=== PATIENT | male | born 1935 | race Caucasian/White ===

== ENCOUNTER → 2017-06-19 | Outpatient (CLI) | payer MEDICARE, BC, OTHER ==
[~2017-06-19] MED LIST: CARDURA4 MG PO; CENTRUM SILVER1 CTB PO; CIALIS2.5 MG PO; DIPHEN/ATROP; GLUCOPHAGE500 MG/TAB PO; LIPITOR 10MG10 MG; MILLIPRED5 MG; NORCO 325 MG-51 TAB PO; ZOFRAN 4MG T4 MG/TAB PO; ZYRTEC5 MG PO
[2017-06-19 17:15] LABS: BASO # 0.1 (0.0-0.2); BASO % 0.6 % (0.0-2.0); EOS # 0.3 (0.0-0.7); EOS % 3.9 % (0-4.0); GRAN % 72.4 % (42.2-75.2); HEMATOCRIT 38.2 % (42.0-52.0); HEMOGLOBIN 12.1 g/dl (13.5-18.0); LYMPH # 1.2 (1.2-3.4); MEAN CELL VOLUME 92 fl (80.0-100.0); MEAN CORPUSCULAR HEMOGLOBIN 29 pg (27.0-31.0); MEAN CORPUSCULAR HGB CONC 32 g/dl (33.0-37.0); MEAN PLATELET VOLUME 11.7 fl (7.4-10.4); MONO # 0.7 (0.1-0.6); MONO % 8.6 % (1.7-9.3); PLATELET COUNT 128 K/mm3 (130-400); RED BLOOD COUNT 4.17 M/mm3 (4.20-5.60); REDCELL DISTRIBUTION WIDTH-CV 14.2 % (11.5-14.5); WHITE BLOOD COUNT 8.3 K/mm3 (4.8-10.8)
[2017-06-19 17:22] LABS: INR 1.2 (0.8-3.0); PROTHROMBIN TIME 13.2 SECONDS (9.7-12.8)
[2017-06-19 17:26] LABS: CREATININE, serum 1.53 mg/dL (0.66-1.25); POTASSIUM 5.1 mmol/L (3.4-5.0)
== END ==
LOC: COL.RAD 16:26
PROVIDERS: Dentist Oral and Maxillofacial Surgery
DX: M26.602 Left temporomandibular joint disorder, unspecified (principal); R22.0 Localized swelling, mass and lump, head; L03.221 Cellulitis of neck
CPT/HCPCS: Q9967

== ENCOUNTER → 2018-06-27 | Outpatient (CLI) | payer MEDICARE, BC | LOC: COL.RAD 08:46 | DX: K22.4 Dyskinesia of esophagus (principal) ==

== ENCOUNTER 2020-11-04 11:30 | Outpatient (CLI) | payer MEDICARE, BC ==
[~2020-11-04] VITALS: Ht 175.3 cm; Wt 97.1 kg
[2020-11-04 11:28] VITALS: BP 149/66; PULSE 58; TEMP 98.1
[~2020-11-04 11:30] MED LIST changes: -LIPITOR 10MG10 MG; +LIPITOR 10MG10 MG PO
[2020-11-04] MEDS ORDERED: CLARITIN 1010 MG/TAB PO (12:37)
[2020-11-04] MEDS ORDERED: PROTONIX 40MG T40 MG PO (12:37)
[2020-11-04] MEDS ORDERED: ALPHA LIPOIC A200 M2 PO (12:38)
[2020-11-04] MEDS ORDERED: XARELTO20 MG PO (12:38)
[2020-11-04] MEDS ORDERED: TYLENOL 500MG500 MG PO (12:39)
[2020-11-04] MEDS ORDERED: FLONASEALLERGY NS (12:40)
[2020-11-04] MEDS ORDERED: TUMS500 MG PO (12:41)
[2020-11-04] MEDS ORDERED: ATHLETE'S FOOT1% TP (12:42)
== END 2020-11-04 16:02 | disposition home or self-care (01) ==
LOC: COL.RAD 11:30
DX: I25.10 Atherosclerotic heart disease of native coronary artery without angina pectoris (principal); Z98.890 Other specified postprocedural states
CPT/HCPCS: J7040; Q9967

== ENCOUNTER → 2021-11-03 | Outpatient (CLI) | payer MEDICARE, BC ==
[~2021-11-03] MED LIST changes: +ALPHA LIPOIC A200 M2 PO; +ATHLETE'S FOOT1% TP; +CLARITIN 1010 MG/TAB PO; +FLONASEALLERGY NS; +PROTONIX 40MG T40 MG PO; +TUMS500 MG PO; +TYLENOL 500MG500 MG PO; +XARELTO20 MG PO
== END ==
LOC: COL.RAD 12:29
DX: K22.4 Dyskinesia of esophagus (principal)

== ENCOUNTER 2022-03-16 21:28 | Emergency (ER) | payer MEDICARE, BC ==
[~2022-03-16] VITALS: Ht 175.3 cm; Wt 88.6 kg
[2022-03-16 22:17] LABS: COLLECTION METHOD CLEAN CATCH
[2022-03-16 22:27] LABS: MUCOUS Present (NOT PRESENT); PH 5 (5-8); SQUAMOUS EPITHELIAL 0-2 /hpf (0-10); URINE APPEARANCE Cloudy (CLEAR/HAZY); URINE BACTERIA Rare /hpf (NONE SEEN); URINE BILIRUBIN Negative (NEGATIVE); URINE BLOOD 3+ (NEGATIVE); URINE COLOR Yellow (YELLOW); URINE GLUCOSE Negative (NEGATIVE); URINE KETONE Negative (NEGATIVE); URINE LEUKOCYTE ESTERASE Negative (NEGATIVE); URINE NITRATE Negative (NEGATIVE); URINE PROTEIN(semi-quant) 1+ (NEGATIVE); URINE RBC >50 /hpf (0-2); URINE UROBILINOGEN Negative (NEGATIVE)
[2022-03-16 23:10] LABS: BASO % 0.4 % (0.0-2.0); EOS # 0.1 K/mm3 (0.0-0.7); EOS % 1.3 % (0.0-4.0); GRAN # 4.8 K/mm3 (1.4-6.5); GRAN % 71.3 % (42.2-75.2); HEMATOCRIT 35.9 % (42.0-52.0); HEMOGLOBIN 11.8 g/dl (13.5-18.0); LYMPH # 1.3 K/mm3 (1.2-3.4); LYMPH % 19.6 % (20.0-51.0); MEAN CELL VOLUME 90 fl (80.0-100.0); MEAN CORPUSCULAR HEMOGLOBIN 30 pg (27-31); MEAN CORPUSCULAR HGB CONC 33 g/dl (33.0-37.0); MEAN PLATELET VOLUME 13.4 fl (7.4-10.4); MONO # 0.5 K/mm3 (0.1-0.6); MONO % 7.3 % (1.7-9.3); PLATELET COUNT 105 K/mm3 (130-400); REDCELL DISTRIBUTION WIDTH-CV 14.2 % (11.5-14.5)
[2022-03-16 23:31] LABS: ALBUMIN 3.2 gm/dL (3.4-4.8); BILIRUBIN,TOTAL 0.3 mg/dL (0.2-1.2); CALCIUM 8.6 mg/dL (8.4-10.2); CREATININE, serum 1.43 mg/dL (0.72-1.25); POTASSIUM 4.2 mmol/L (3.5-4.5); TOTAL PROTEIN 6.5 gm/dL (6.2-8.1)
[2022-03-17 02:55] VITALS: BP 134/49; PULSE 55; TEMP 98.1
== END 2022-03-17 02:54 | disposition home or self-care (01) ==
LOC: COL.ER 21:28
PROVIDERS: Emergency Medicine Emergency Medical Services
DX: N13.2 Hydronephrosis with renal and ureteral calculous obstruction (principal); D64.9 Anemia, unspecified
CPT/HCPCS: J1885; Q9967